=== PATIENT | female | born 1960 | race Caucasian/White ===

== ENCOUNTER 2019-09-06 15:28 | Emergency (ER) | payer OTHER ==
[~2019-09-06] VITALS: Ht 170.2 cm; Wt 77.1 kg
[2019-09-06] MEDS ORDERED: IBUPROFEN 600 MG TABLET PO ONE ×2 (16:00→16:11)
[2019-09-06] MEDS ORDERED: TDAP [DIPH/PERTUSSIS/TET] 0.5 ML VIAL IM ONE ×2 (16:00→16:12)
--- NOTE | 2019-09-06 16:20 | NUR ---
[facility] FRIEND CALLED TO PICK THE PATIENT UP WHEN READY. HOME CELL
--- NOTE | 2019-09-06 17:03 | NUR ---
PT BIB [facility] S/P DOG BITE 2-3CMLAC TO L ARM. C/O PAIN AND WAS FEELING WOOZY BUT NOW RESOLVED. RESP EVEN UNLABORED. SKIN WARM DRY, INTACT EXCEPT FOR LAC. NAD NOTED. IN ER CHAIR 1.
[2019-09-06] MEDS ORDERED: LIDOCAINE HCL/MPF 1% 30 ML VIAL IJ ONE (17:10)
[2019-09-06] MEDS ORDERED: LIDOCAINE MPF 1%-EPI 1:200,000 30 ML VIAL IJ ONE (17:12)
[2019-09-06] MEDS ORDERED: AMOX/CLAVULANATE 875 MG TABLET ONE (17:52)
[2019-09-06] MEDS ORDERED: AMOX/CLAVULANATE 875 MG TABLET PO ONE (18:00)
[2019-09-06 18:05] VITALS: BP 132/70
--- NOTE | 2019-09-06 18:11 | NUR ---
Patient discharged to home in stable condition. Written and verbal after care instructions given. Patient verbalizes understanding of instruction.
== END 2019-09-06 18:13 | disposition home or self-care (01) ==
LOC: ER 15:33
DX: S51.812A Laceration without foreign body of left forearm, initial encounter (principal); E03.9 Hypothyroidism, unspecified; Z60.2 Problems related to living alone; W54.0XXA Bitten by dog, initial encounter; Y93.89 Activity, other specified; Y92.89 Other specified places as the place of occurrence of the external cause; Y99.8 Other external cause status
CPT/HCPCS: 12001; 73090; 90471; 90715; 99283; J3490 ×2

== ENCOUNTER 2019-09-09 08:39 | Emergency (ER) | payer OTHER ==
[~2019-09-09] VITALS: Ht 170.2 cm; Wt 77.1 kg
[2019-09-09 08:44] VITALS: BP 161/106
== END 2019-09-09 09:06 | disposition home or self-care (01) ==
LOC: ER 08:39
DX: S51.812D Laceration without foreign body of left forearm, subsequent encounter (principal); E03.9 Hypothyroidism, unspecified; Z60.2 Problems related to living alone; W54.0XXD Bitten by dog, subsequent encounter

== ENCOUNTER 2019-09-14 08:11 | Emergency (ER) | payer OTHER ==
[~2019-09-14] VITALS: Ht 170.2 cm; Wt 76.7 kg
[2019-09-14 08:17] VITALS: BP 142/89
== END 2019-09-14 08:26 | disposition home or self-care (01) ==
LOC: ER 08:11
DX: S51.812D Laceration without foreign body of left forearm, subsequent encounter (principal); E03.9 Hypothyroidism, unspecified; Z60.2 Problems related to living alone; W54.0XXD Bitten by dog, subsequent encounter

== ENCOUNTER 2021-03-08 17:36 | Emergency (ER) | payer OTHER ==
[~2021-03-08] VITALS: Ht 170.2 cm; Wt 82.6 kg
[2021-03-08 17:49] VITALS: BP 137/77
== END 2021-03-08 18:49 | disposition home or self-care (01) ==
LOC: ER 17:54
DX: R59.1 Generalized enlarged lymph nodes (principal); E03.9 Hypothyroidism, unspecified; Z60.2 Problems related to living alone

== ENCOUNTER 2023-01-16 01:21 | Emergency (ER) | payer OTHER ==
[~2023-01-16] VITALS: Ht 170.2 cm; Wt 71.2 kg
[2023-01-16 01:29] VITALS: TEMP 98.1
--- NOTE | 2023-01-16 01:30 | NUR ---
cp when laying flat, pulsating h/a like feeling in back of head. PATIENT AOX4, CONNECTED TO POX AND MONITOR, GIVEN BLANKET, RESTING COMFORTABLY IN BED.
--- NOTE | 2023-01-16 01:33 | NUR ---
DR BLANCO AT BEDSIDE
--- NOTE | 2023-01-16 01:50 | NUR ---
RAC 20G ESTABLISHED, BLOOD DRAWN AND SENT TO LAB. CONVERTED TO SALINE LOCK
--- NOTE | 2023-01-16 01:58 | NUR ---
PT TAKEN TO CT VIA MARIA DE JESUS
--- NOTE | 2023-01-16 01:58 | NUR ---
PT TAKEN TO CT BY TECH
--- NOTE | 2023-01-16 02:05 | NUR ---
PT BACK FROM CT
[2023-01-16 02:16] LABS: BASOPHILS % (AUTO) 0.7 % (0.0-2.0); EOSINOPHILS % (AUTO) 2.1 % (0.0-6.0); HEMATOCRIT 40 % (33-45); HEMOGLOBIN 13.5 g/dL (11.5-14.8); LYMPHOCYTES # (AUTO) 1.8 K/uL (0.8-4.8); LYMPHOCYTES % (AUTO) 25.6 % (20.0-44.0); MEAN CORPUSCULAR HGB CONC 34 g/dl (31.0-36.0); MEAN CORPUSCULAR VOLUME 92 fL (82-100); MONOCYTES # (AUTO) 0.6 K/uL (0.1-1.30); MONOCYTES % (AUTO) 8.7 % (2.0-12.0); NEUTROPHILS # (AUTO) 4.4 K/uL (1.8-8.9); NEUTROPHILS % (AUTO) 62.9 % (43.0-81.0); PLATELET COUNT (AUTO) 239 K/uL (150-450); RED BLOOD CELL COUNT(AUTO) 4.31 MIL/uL (4.0-5.2)
[2023-01-16 02:29] LABS: CALCIUM, SERUM 9.3 mg/dL (8.5-10.1); CARBON DIOXIDE 29 mmol/L (21-32); CHLORIDE 104 mmol/L (98-107); GLUCOSE 93 mg/dL (74-106); POTASSIUM 3.7 mmol/L (3.5-5.1); SODIUM SERUM 141 mmol/L (136-145); UREA NITROGEN, BLOOD 11 mg/dL (7-18)
[2023-01-16 02:35] LABS: ALANINE AMINOTRANSFERASE 23 U/L (12-78); ALBUMIN 3.8 g/dL (3.4-5.0); ALKALINE PHOSPHATASE 111 U/L (46-116); ASPARTATE AMINOTRANSFERASE 19 U/L (15-37); BILIRUBIN,DIRECT 0.2 mg/dL (0.0-0.2); BILIRUBIN,TOTAL 0.9 mg/dL (0.2-1.0); TOTAL PROTEIN, SERUM 7.5 g/dL (6.4-8.2)
--- NOTE | 2023-01-16 05:00 | NUR ---
IV removed. Catheter intact and site benign. Pressure and 4x4 applied to site. No bleeding noted.
--- NOTE | 2023-01-16 05:00 | NUR ---
Patient discharged to home in stable condition. Written and verbal after care instructions given. Patient verbalizes understanding of instruction.
--- NOTE | 2023-01-16 05:01 | NUR ---
PATIENT DID NOT WANT TO WAIT FOR IMAGING CD.
[2023-01-16 05:02] VITALS: BP 131/79; O2SAT 97
== END 2023-01-16 05:03 | disposition home or self-care (01) ==
LOC: ER 01:26
DX: R51.9 Headache, unspecified (principal); R07.89 Other chest pain; Z71.1 Person with feared health complaint in whom no diagnosis is made; E03.9 Hypothyroidism, unspecified; Z60.2 Problems related to living alone
CPT/HCPCS: 36415; 70450-TC; 80048-TC; 80076-TC; 84484-TC; 85025-TC; 85730-TC; J7030

== ENCOUNTER 2023-11-19 16:45 | Emergency (ER) | payer BC, OTHER ==
[~2023-11-19] VITALS: Ht 170.2 cm; Wt 64.9 kg
[2023-11-19 17:03] VITALS: BP 121/51; TEMP 98.2
[2023-11-19] MEDS: LIDOCAINE HCL/PF 1% 30 ML VIAL TP ONE (17:30)
[2023-11-19] MEDS ORDERED: LIDOCAINE HCL/MPF 1% 30 ML VIAL IJ ONE (17:46)
[2023-11-19] MEDS ORDERED: CEPH-570 PO (18:11)
[2023-11-19 18:15] VITALS: O2SAT 98
== END 2023-11-19 19:30 | disposition home or self-care (01) ==
LOC: ER 16:48
DX: L02.212 Cutaneous abscess of back [any part, except buttock and flank] (principal); E03.9 Hypothyroidism, unspecified; Z60.2 Problems related to living alone
CPT/HCPCS: 99283; 10060; J3490